=== PATIENT | female | born 1950 | race Caucasian/White ===

== ENCOUNTER 2016-10-16 13:09 | Outpatient (CLI) | payer MEDICARE, OTHER | END 2016-10-16 13:10 | disposition home or self-care (01) | DX: Z13.820 Encounter for screening for osteoporosis (principal); Z78.0 Asymptomatic menopausal state ==

== ENCOUNTER 2020-09-01 09:50 | Outpatient (CLI) | payer MEDICARE, OTHER ==
--- NOTE | 2020-09-01 12:36 | DEXA Report ---
PROCEDURE: Dexa Spine and/or Hip INDICATIONS: MENOPAUSE TECHNIQUE: Dual energy x-ray absorptiometry (DXA) was performed on a [employer] System. Regions measur ed are the AP Spine, femoral neck, and if needed forearm. COMPARISON: 10/16/2016 FINDINGS: Lumbar Spine: Bone Mineral Density 0.934 g/cm/cm,T score -2.0, osteopenia, change from previous -14.6%, signific ant Left Hip: Bone Mineral Density 0.718 g/cm/cm,T score -2.3, osteopenia, change from previous -24.4%, significan t Left Femoral Neck: Bone Mineral Density 0.801 g/cm/cm, T score -1.7, osteopenia (T score greater or equal to -1.0: NORMAL) (T score from -1.1 to -2.4: OSTEOPENIA) (T score less than or equal to -2.5 to: OSTEOPOROSIS) Impression: 1. Significant interval decrease in bone mineral density compared to the prior study. 2. Osteopenia elevates the patient's fracture risk. Patients with diagnosis of osteoporosis or osteopenia should have regular bone mineral density assess ment. For those eligible for Medicare, routine testing is allowed once every 2 years. Testing frequ ency can be increased for patients who have rapidly progressing disease or for those who are receivin g medical therapy to restore bone mass. Reviewed by: Sofy Mccormick MD on 09/01/2020 12:35 PM PST Approved by: Sofy Mccormick MD on 09/01/2020 12:35 PM PST Station ID: [id number]
== END 2020-09-01 09:51 | disposition home or self-care (01) ==
LOC: DI 09:50
PROVIDERS: ATTEND Nurse Practitioner Adult Health
DX: M85.89 Other specified disorders of bone density and structure, multiple sites (principal); Z78.0 Asymptomatic menopausal state

== ENCOUNTER 2021-07-08 08:00 | Outpatient (CLI) | payer MEDICARE, OTHER ==
[2021-07-08 21:54] LABS: BACTERIAL VAGINOSIS DNA NEGATIVE (NEGATIVE); CANDIDA GLABRATA DNA NEGATIVE (NEGATIVE); CANDIDA GROUP DNA NEGATIVE (NEGATIVE); CANDIDA KRUSEI DNA NEGATIVE (NEGATIVE); TRICHOMONAS VAGINALIS DNA NEGATIVE (NEGATIVE)
== END 2021-07-08 23:59 | disposition home or self-care (01) ==
LOC: LAB.S 08:00
PROVIDERS: ATTEND Physician Assistant Medical
DX: N76.0 Acute vaginitis (principal)
CPT/HCPCS: 87661; 87801

== ENCOUNTER 2023-12-05 12:33 | Outpatient (CLI) | payer MEDICARE ==
--- NOTE | 2023-12-05 16:34 | DEXA Report ---
PROCEDURE: Dexa Spine and/or Hip INDICATIONS: OSTEOPENIA TECHNIQUE: Dual energy x-ray absorptiometry (DXA) was performed on a [employer] System. Regions measur ed are the AP Spine, femoral neck, and if needed forearm. COMPARISON: DEXA, 09/01/2020 FINDINGS: Lumbar Spine: Bone Mineral Density: 0.872 g/cm/cm,T score: -2.6. Osteoporosis. Left Femoral Neck: Bone Mineral Density: 0.693 g/cm/cm, T score: -2.5. Osteoporosis. Left Hip: Bone Mineral Density: 0.578 g/cm/cm,T score: -2.4. Osteoporosis. (T score greater or equal to -1.0: NORMAL) (T score from -1.1 to -2.4: OSTEOPENIA) (T score less than or equal to -2.5 to: OSTEOPOROSIS) Comparison to prior examinations: Compared to the last exam, the patient's bone mineral density in alexandra mbar spine has decreased by 6.6%. The patient's bone density in left hip has decreased by 19.5%. Both changes are statistically significant. IMPRESSION: 1. By WHO criteria, this patient has osteoporosis. 2. There is significant decrease in patient's bone mineral density in lumbar spine and left hip since the last exam. Patients with diagnosis of osteoporosis or osteopenia should have regular bone mineral density assess ment. For those eligible for Medicare, routine testing is allowed once every 2 years. Testing frequ ency can be increased for patients who have rapidly progressing disease or for those who are receivin g medical therapy to restore bone mass. Reviewed by: Margaret Harrison MD on 12/05/2023 4:32 PM PDT Approved by: Margaret Harrison MD on 12/05/2023 4:32 PM PDT Station ID: [id number]
== END 2023-12-05 12:34 | disposition home or self-care (01) ==
LOC: DI 12:33
PROVIDERS: ATTEND Nurse Practitioner Adult Health
DX: M81.0 Age-related osteoporosis without current pathological fracture (principal); Z78.0 Asymptomatic menopausal state